=== PATIENT | female | born 1950 | race African-American/Black ===

== ENCOUNTER 2020-08-12 19:49 | Inpatient (IN) | payer OTHER ==
[~2020-08-12] VITALS: Ht 170.2 cm; Wt 78.5 kg
[2020-08-12] MEDS ORDERED: ASA81BEC PO (20:09)
[2020-08-12] MEDS ORDERED: LOVENOX40 MG/0.4 SUBQ (20:10)
[2020-08-12] MEDS ORDERED: LIPITOR40 MG PO (20:10)
[2020-08-12] MEDS ORDERED: HALOPERIDOL5 MG/1 M1 SUBQ (20:12)
[2020-08-12] MEDS ORDERED: TYLENOL EXTRA500 MG PO (20:13)
[2020-08-12] MEDS ORDERED: BISACODYL10 MG RECTAL (20:13)
[2020-08-12] MEDS ORDERED: CLONIDINE HCL0.1 MG PO (20:15)
[2020-08-12] MEDS ORDERED: DIPHENHYDRAMINE25 M3 PO (20:17)
[2020-08-12] MEDS ORDERED: DULCOLAX STOOL100 M1 PO (20:17)
--- NOTE | 2020-08-13 05:26 | NUR ---
ARRIVED ON [facility] 5S FLOOR @ 19:45 AND TRANSFERRED TO BED 521A. 96 HOUR HOLD COMPLETED AND FAXED TO [facility]. ADMISSION ORDERES ENTERED, MEDICATIONS ENTERED. PSYCH DX: PSYCHOSIS NOS. STROKE, DEMENTIA AND ALTERED MENTAL STATUS THE REASONS FOR PATIENT ADMISSION. COMES TO US FROM [facility]. HIGH FALL RISK. EXPERIENCES VISUAL HALLUCINATIONS, HAS DEMENTIA AND DELUSUIONS THAT HER IS A CARPENTER LABOR SUPERVISOR ON TV. BELIEVES WINS MONEY AND PRIZES ON [employer] TV SHOW. CALLS HER BANK DEMANDING T KNOW WHERE THE MONEY IS THAT [employer] DEPOSITED IN HER ACCOUNT. HAS ALSO LEFT HER HOME IN THE NIGHT IN WINTER LIGHTLY DRESSED IN SANDLES AND SAT ON THE CURB OF A BUSY STREET. CONSULTS FOR OT, PT, COREMAKER HELPER AND HOSPITALIST. REGULAR DIET LEFT SIDE OF FACE HAS PALSEY. LEFT LEG WEAK AND LEFT ARM IN A SLING WITH TORREY PARESIS. HTN NOTED.
--- NOTE | 2020-08-13 05:45 | NUR ---
08/13/20 20:00 [id number] 96 18 98.5 97% HEART RATE AND RHYTHM REGULAR, LUNGS CTA BILAT, ABD N X 4Q. LEFT ARM ( IN SOFT SLING) AND LEFT LOWER EXTREMITY HEMIPARESIS NOTED. LEFT SIDE OF FACE HAS PALSEY NOTED. REGULAR DIET. ALERT AND ORIENTED X2 TO PERSON AND ONLY. SKIN IS INTACT. PEDAL PULSES PRESENT BILAT. BED IN LOW POSITION, BED ALARM SET, 3 RAILS UP, WILL CONTINUE TO MONITOR FOR SAFETY AND COMFORT PER [facility] PROTOCOL.
[2020-08-13 06:26] LABS: CHOLESTEROL 188 mg/dL (<200); HDL CHOLESTEROL 50 mg/dL (>40); LDL CHOLESTEROL 115 mg/dL (<100); TC:HDL 3.8 Ratio (Not establshd); TRIGLYCERIDE 118 mg/dL (<150); VLDL 24 mg/dL (<40)
[2020-08-13 06:30] LABS: SERUM ASSESSMENT Clear
[2020-08-13 10:23] VITALS: BP 166/67
--- NOTE | 2020-08-13 16:14 | NUR ---
JOCELYNE spoke with pt who could tell SW the day and other relevant information. She said she went into the hospital July 05 for a stroke. When SW spoke with her again, she said that her is Receptionist Telephone Operator [place] on television. She said she has been to him a year, and met him at faith. JOCELYNE and Dr. Jean spoke with pt's daughter Loreto who gave much background info. She said actually pt went to the hospital August 05 and she was fully functioning before the stroke. She had no physical issues at all. She said her pt has always to her knowledge had delusions. She said when pt was with Loreto's sister, pt was admitted to a psych hospital. However, she will not share with Loreto or her sister if she has a dx. She said that she and her sister are now pursuing guardianship of pt. She said she has an appt with her transactional attorney today to get to him documents. She gave JOCELYNE the email address of [email or web address]. JOCELYNE emailed to Loreto a [facility] welcome from JOCELYNE. JOCELYNE team will continue to follow pt during her stay on this unit.
[2020-08-13 19:14] VITALS: BP 179/97
[2020-08-14 00:06] LABS: GLYCOHEMOGLOBIN (HGB A1C) 7.7 % (4.8-5.6)
--- NOTE | 2020-08-14 00:45 | NUR ---
ASSUMED PT'S CARE BEGINNING OF THIS PM SHIFT. PT ALERT AND ORIENTED. DID INITIALLY REFUSE MEDS. VOICING THAT SHE WAS "FASTING". WAS IRRITABLE AND FUSSY AT THAT TIME. DENIED SI/HI. LATER REQUESTED TO TAKE MEDS. PT CURRENTLY IN BED, SLEEPING. FALL PRECAUTIONS IN PLACE. NURSING TO CONTINUE TO MONITOR.
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
[2020-08-14 09:32] VITALS: BP 155/83
--- NOTE | 2020-08-14 14:29 | NUR ---
Assumed pt care at 0700. pt was in her room awake. Alert and oriented x4. Assessments completed, vss. Denies si/hi. No c/o pain at this time. calm and coopeartive with care. pt took meds whole, no difficulty noted. AMbulates with a w/c. socialized with other pt. WORKED WITH OCCUPATIONAL THERAPIST. No sign sign of acute distress noted upon assessments. At this time pt is in her room relaxing. will continue to monitor pt.
--- NOTE | 2020-08-14 15:18 | NUR ---
OT SPOKE WITH PT. AND ASSESSED SKIN AFTER LEUKOTAPE ON SKIN APPROX 3 HOURS. PT. REPORTS CONTINUING TO FEEL TAPING IS SUPPORTING ARM, SHE STATES EVEN BETTER THAN THE SLING SHE HAD ON PRIOR. PT. SKIN APPEARS INTACT, NO NOTICIBLE IRRITATION. SPOKE WITH NURSING, OT WILL CHECK SKIN TOMORROW AGAIN. IF PROBLEMS WITH TAPING OCCUR ON TUESDAY OR TUESDAY, REMOVE TAPE AND REAPPLY PT. SLING (IN PT. LOCKER ON UNIT) PT. NEEDS SUPPORT FOR L UE AT ALL TIMES. OT WILL ALSO CHECK BACK IN ON TUESDAY AND RE-TAPE TAPING WILL NEED TO BE DONE BI-WEEKLY.
[2020-08-14 19:03] VITALS: BP 161/96
[2020-08-14 22:00] VITALS: BP 161/96
--- NOTE | 2020-08-15 05:13 | NUR ---
PATIENTS CARE WAS RESUMMED AT 1900. LUNGS ARE CLEAR BS ACTIVE X4 QUADS. SHE DENIES PAINS/SI/AVH/HI AND ANY DISCOMFORT. SHE TOOK HER MEDS WHOLE. SHE IS A MAX ASSIST WITH CARE AND INCONTINET OF BOWEL AND BLADDER. SHE IS PLEASANT AND NO BEHAVIOUR NOTED THIS SHIFT.SHE IS A FALL RISK, YELLOW SOCKAND SHIRT ON, BED IS LOW AND LOCKED. Q 12 MINS CHECK ONGOING. SHE AMBBULATED WITH WHEELCHAIR. CONTINUE CARE AND MONITOR.
[2020-08-15 09:28] VITALS: BP 157/98
--- NOTE | 2020-08-15 09:32 | NUR ---
JOCELYNE spoke with Loreto [phone] and told her it was okay to bring magazines and crossword puzzles for pt per [facility] director. SW team will continue to follow pt during her stay on this unit.
--- NOTE | 2020-08-15 09:40 | NUR ---
SITTING QUIETLY IN DAYROOM WITH PEERS THIS AM. NO NOTED SPONTANEOUS SMILING,CONVERSATIONS ETC NOTED OR REPORTED. DENIES SI/SHY/HI. GUARDED. WILL RESPOND TO YES/NO QUESTIONS AND OFFERS NO FURTHER EXPLANATIOINS.
[2020-08-15 20:18] VITALS: BP 158/108
[2020-08-15 21:00] VITALS: BP 158/108
--- NOTE | 2020-08-16 03:40 | NUR ---
PATIENT CARE WAS RESUMED AT 1900. SHE IS ALERT AND ORIENTED. MAX ASSIST WITH CARE. SHE DENIES PAINS, SI/ AVH/ HI. TOOK HER MEDS WHOLE, HE IS RESTING IN BED. ALARM IS ON, BED IS LOW AND LOCK. LUNGS ARE CLEAR BS ACTIVE X 4 QUADS. SHE AMBULATES WITH MIKIE -CHAIR. CONTINUE CARE.
[2020-08-16 09:07] VITALS: BP 167/121
--- NOTE | 2020-08-16 12:11 | NUR ---
HAS BEEN NOTABLY MORE VERBAL TODAY SPEAKS TO STAFF AT LENGTH DURING 1;1 THIS AM ABOUT HER LOVE OF THE OCEAN AND SCUBA DIVING. ATE WELL FOR BREAKFAST BUT REFUSES LUNCH STATING SHE PREFERS TO "HYDRATE" THIS PM "I FEEL BETTER WHEN I DRINK WATER" ASSISTED TO/FROM BED/COMMODE WITH 2 STAFF HAS SIGNIFICANT LEFT SIDED HEMEPERESIS
[2020-08-16 15:23] VITALS: BP 140/84
[2020-08-16 19:38] VITALS: BP 159/82
--- NOTE | 2020-08-16 23:44 | NUR ---
ASSUMED PATIENT CARE AT 1900. PATIENT LYING IN BED AWAKE, NO S/S OF DISTRESS OR DISCOMFORT. A&OX3, DENIES SI, HI, DEPRESSION, PAIN, AVH. NO DELUSIONS OBSERVED. TOOK MEDS WHOLE WITH SOME DIFFICULTY, NEEDED SEVERAL GLASSES OF WATER TO GET THEM DOWN - THOUGH DECLINED THEM TO BE CRUSHED OR TO HAVE THEM WITH PUDDING/APPLESAUCE. PATIENT STATED "AM I GONNA HAVE TO TAKE THESE WHEN I LEAVE? I NEVER TAKE MEDICINES AT HOME, AND I DON'T WANT TO START NOW". WILL CONTINUE TO MONITOR.
[2020-08-17 09:32] VITALS: BP 155/90
--- NOTE | 2020-08-17 13:18 | NUR ---
Assumed pt care at 0700. pt was sitting in the day room. pt was alert and oriented x4. Assessments completed , vss. Denies si/hi, denies pain. pt refused taking her meds, pt stated she never took med at home. pt stated her sister takes meds and it make her sister sleepy, and that is her reason for refusing meds.After redirecting pt, pt took her meds threw it into water CUP, allowed it to dissolve before taking it. Ambulates with a Shelly chair. No sign of acute distress noted upon assessments.pt did not eat much of her breakfast. pt ate most of her lunch. At this time pt is in the day room. will continUe to monitor pt.
[2020-08-17 19:17] VITALS: BP 137/81
--- NOTE | 2020-08-17 23:59 | NUR ---
PATIENT CARE ASSUMED AT 1900. PATIENT IN DAY AREA IN [facility] AT BEGINNING OF THIS TOUR. PATIENT A&OX4, WHEN ASKED HOW SHE WANTED TO TAKE HER MEDS, PATIENT STATED "I JUST NEED TO SEE THE SIZE OF THEM FIRST". GAVE PATIENT MEDICATIONS AND SHE TOOK THEM WHOLE WITHOUT DIFFICULTY WITH 2 CUPS OF WATER. REQUIRES 1-2 ASSIST WITH TRANSFER/TOILETING. WHEN THIS CEMENTING MACHINE OPERATOR ASKED IF I COULD HELP REPOSITION HER IN BED, SHE STATED "I HAVE TO LEARN TO DO THIS MYSELF". PATIENT WAS ABLE TO REPOSITION HERSELF COMFORTABLY. PATIENT PLEASANT AND COOPERATIVE THIS EVENING. WILL CONTINUE TO MONITOR.
[2020-08-18 10:07] VITALS: BP 142/87
--- NOTE | 2020-08-18 12:21 | EKG ---
[address] [address] ELECTROCARDIOGRAM REPORT Name: JAVIER MAURICIO Room #: 52-A ADM IN M.R.#: [id number] Admission: 08/12/20 Attend Phys: Maury Jean DO Discharge: Date of : 50 Report #: [id number] [facility] Test Date: 2020-08-18 Test Time: 11:22:07 Pat Name: JAVIER MAURICIO Department: Room: 52 A Gender: F Manager Scientific: KIKE : 1950 Requested By: Maury Jean Order Number: [id number] MD: Jon Desir Measurements Intervals [place] Rate: 148 P: 183 NH: 68 QRS: 35 QRSD: 108 T: 25 QT: 360 QTc: 566 Interpretive Statements Sinus or ectopic atrial tachycardia Probable left ventricular hypertrophy Prolonged QT interval Baseline wander in lead(s) I No previous ECG available for comparison Electronically Signed On 08-18-2020 12:21:41 CDT by Jon Desir [email or web address] <ELECTRONICALLY SIGNED> By: Jon Desir MD, [facility] 08/18/20 1221 21 21 Jon Desir MD, [facility] /EPI
--- NOTE | 2020-08-18 14:09 | NUR ---
JOCELYNE, Dr. Jean & Dr. Cueva met with pt and her dtrs, Loreto and Maddison for a family meeting to discuss patient's needs at this time. Pt and her family were informed that patient needs 24 hr supervision at this time due to the injury she sustained secondary to having recently had a stroke. She also had an irregular EKG this morning. When pt found out she was not being discharged today as she had planned, she became angry and started yelling. Family's questions were answered and the plan is to follow up tomorrow with updates. SW team will remain available while on this unit.
--- NOTE | 2020-08-18 17:04 | NUR ---
pleasant and cooperative initially this am-oriented to person,place-unsure of date but knew the month. ATE 100 PERCENT OF BREAKFAST AND TOOK AM MEDICATIONS TRANSFERING WITH 1 PERSON ONLY AND DEMONSTRATING TO THIS MEDICAL ACCOUNTANT IMPROVEMENT SHE HAD MADE IN MOVEMENT OVER WEEKEND. AT APPROX 1130 HAD FAMILY MEETING AND SINCE THAT TIME HAS BEEN [id number] "THEY TOLD ME I CAN'T GO HOME I HAVE TO STAY HERE AND THAT I CAN'T TAKE CARE OF MYSELF" REFUSED LUNCH AND DID NOT PARTICIPATE IN PM ACTIVITIES. WHEELED SELF TO ROOM AND PUT SELF IN BED AT APPROX 1645-REFUSED SUPPER-MINIMALLY VERBAL WITH STAFF WHEN ATTEMPTED TO SPEAK WITH HER STATING "I DON'T WANT TO TALK TO ANY OF YOU" DID WORK WITH PT DURING SCHEDULED TIME.
[2020-08-18 19:15] VITALS: BP 153/105
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
--- NOTE | 2020-08-18 20:26 | NUR ---
RYAN PHAM NOTIFIED OF PTS REFUSAL OF CARDIZEM.
--- NOTE | 2020-08-19 00:54 | NUR ---
PATIENT CARE RESUMED AT 1900. PATIENT A&OX4, NO S/S OF DISTRESS DISCOMFORT. TOOK MEDS WITHOUT DIFFICULTY. STATES SHE IS GETTING SOME FEELING BACK IN HER LEFT ARM. PATIENT IS CONSIENTIOUS ABOUT POSITIONING AND KEEPING HER LEFT ARM SAFE AND KEEPING HER FINGERS FROM BENDING THE WRONG WAY. SHE STATES SHE LEARNED THIS IN PHYSICAL THERAPY. WILL CONTINUE TO MONITOR.
[2020-08-19 10:19] VITALS: BP 153/105
--- NOTE | 2020-08-19 10:57 | NUR ---
RT PROGRESS NOTE- Rosalinda has been present in the milieu for much of each day since her admission. She is present in recreation therapy groups but her participation varies dependent upon her mood which remains labile. Rosalinda continues to present with delusions regarding particular patients as actors from movies on TV and previous presidents casting various rules regarding how much she can eat, what the thermostat should be set at, or when a mother can work following the of a child. She is goal oriented and focused on the improvement of her deficits that resulted from her stroke. ARTIFICIAL CHERRY MAKER will encourage continued participation.
--- NOTE | 2020-08-19 13:45 | NUR ---
Assumed pt care at 0700. PT WAS IN HER ROOM RESTING. Assessments completed,vss. Took meds whole, no difficulty NOTED. Pt denies si/hi, denies pain. ambulates with w/c. No sign of acute distress noted upon assessments. pt was calm and cooperative with care. Make needs known to staff. no BM noted AT THIS TIME. AT THIS TIME PT IS IN GROUPS. WILL CONTINUE TO MONITOR.
[2020-08-19 19:58] VITALS: BP 139/107
--- NOTE | 2020-08-20 05:45 | NUR ---
08-19-20 CARE TRANSFERRED 1899. LATER PT AAOX3, VSS, RR EVEN AND NONLABORED ON RA, PT DENIES PAIN AND SI/HI. DURING MEDICATION ADMIN PT HAD NO DIFFICULTIES TAKING MEDICATION ON IN WATER. ZERO S/S OF ACUTE DISTRESS NOTED, PT WILL CONTINUE TO BE MONITOR PER [facility].
[2020-08-20 09:31] VITALS: BP 139/80
--- NOTE | 2020-08-20 18:27 | NUR ---
HAS BEEN QUIET AND COOPERATIVE TODAY-SITS QUIETLY IN DAYROOM DURING UNSTRUCTURED TIME-SOME SOCIALIZATION WITH FEMALE PEERS -SAD FACIAL EXPRESSION-CONSTRICTED AFFECT. DENIES SI/SH. NO NOTED OR REPORTED PSYCHOSIS-DELUSIONAL THOUGHTS OR A/V HALLUCINATIONS. WORKS WELL WITH PT AND DOES SHOW SOME SPONTANEOUS EXPRESSION ABOUT PROGRESS SHE HAS MADE WITH MOVEMENT AND AMBULATION. ALERT AND ORIENTED X 2. CONTINUES ON FALL PRECAUTIONS
[2020-08-20 19:47] VITALS: BP 148/87
--- NOTE | 2020-08-20 23:20 | NUR ---
08-20-20 CARE TRANSFERRED 1899. LATER PT AAOX4, VSS, RR EVEN AND NONLABORED ON RA, PT DENIES SI/HI AND PAIN. PT CALM BUT IS FRUSTRATED AND READY TO GO HOME. PT BED WAS ADJUSTED FOR PT COMFORT AND BED LOWEST POSITION AND ALARM SET. DURING MEDICATION PT HAD NO DIFFICULTIES. ZERO S/S OF ACUTE DISTRESS NOTED, PT WILL CONTINUE TO BE MONITOR PER [facility] PROTOCOL.
--- NOTE | 2020-08-21 09:35 | NUR ---
JOCELYNE received a vm stating that her batch freezer needs to know where pt will be placed so that they can file with the court and get a court date. SW explained that she simply needs to tell them what county she wants [place] at; her home ([place]) vs her sisters home ([place]) so that she can get a court date. JOCELYNE explained that all she needs to do is decide which county they want her in, and then tell her oracle engineer. They will serve pt in the hospital no matter what. She said ok, and that she will place in [place]. SW team will continue to follow pt during her stay on this unit.
[2020-08-21 11:35] VITALS: BP 102/72
--- NOTE | 2020-08-21 15:20 | NUR ---
Alert and orientated X4. Flat, depressed affect, irritable at times. Denies SI/HI. Stated she was nauseated after lunch and didn't feel well, refused zofran. Was initially requesting sprite but then declined when told she couldn't have it in her room. Laid down without diff and rested for about an hour. Breath sounds clear. Reg HR auscultated. Color pale pink with brisk capillary refill and palpable peripheral pulses. Brief dry. Active bowel sounds over soft, rounded abdomen. Can't remember last BM, refusing laxative. Last documented BM 08/19
[2020-08-21 19:50] VITALS: BP 87/50
[2020-08-21 20:40] VITALS: BP 96/56
--- NOTE | 2020-08-22 04:25 | NUR ---
08-21-20 CARE TRANSFERRED 1914 OBSERVED PT SITTING IN W/CHAIR IN DAY ROOM. LATER PT RESTING IN BED WITH EYES CLOSED, EASILY AROUSED TO VOICE, PT REPOSITION SELF TO SITTING POSITION, PT AAOX4, MANUAL B/P 96/56, APICAL PULSE 72, PT SKIN W/D AND PT DENIES PAIN AND SI/HI. PT HAD NO DIFFICULTIES TAKING MEDICATION FLOATED WHOLE IN WATER, THIS IS PT PREFERRENCE. PT BED WAS ADJUSTED FOR COMFORT, LOWEST POSITION WITH ALARM ON. ZERO S/S OF ACUTE DISTRESS NOTED, PT WILL CONTINUE TO BE MONITOR PER [facility] PROTOCOL.
[2020-08-22 10:19] VITALS: BP 119/69
--- NOTE | 2020-08-22 10:44 | NUR ---
Alert and orientated X4. Denies SI/HI. Calm and cooperative, states she feels better than yesterday. Irritable at times, questioning each med but compliant. Breath sounds clear. Reg HR auscultated. Color pink with brisk capillary refill and palpable peripheral pulses. Denies need to void. Active bowel sounds over soft, rounded abdomen. Pushing self in WC without s/o distress.
[2020-08-22 19:54] VITALS: BP 111/65
--- NOTE | 2020-08-23 05:41 | NUR ---
Assumed pt's care beginning of pm shift. Alert and oriented. Pt was in her bed at time of assessment. Pt was cooperative with care this shift. Took meds whole per emar. Tachycardia. Pt slept well this shift. Edema remains to BLE and feet. Left more edematous than right. New lab orders and pharmacy consult. Nursing to continue to monitor.
[2020-08-23 06:05] LABS: ABSOLUTE NEUTROPHILS 10.5 thou/uL (1.4-8.2); BASOPHILS 0.2 % (0.0-2.0); EOSINOPHILS 0.3 % (0.0-3.0); HEMATOCRIT 25.5 % (37.0-47.0); HEMOGLOBIN 8.3 gm/dL (12.0-15.0); LYMPHOCYTES 11.6 % (24.0-44.0); MCH 28.7 pg (26.0-34.0); MCHC 32.5 g/dL (28.0-37.0); MCV 88.3 fL (80.0-100.0); MONOCYTES 17.2 % (1.0-8.0); PLATELET COUNT 77 thou/uL (150-400); POLYS 70.7 % (36.0-66.0); RBC 2.89 mil/uL (4.20-5.00); WBC 14.8 thou/uL (4.0-11.0)
[2020-08-23 06:28] LABS: ALBUMIN 2.3 g/dL (3.4-5.0); CALCIUM 8.6 mg/dL (8.5-10.1); CREATININE 1.1 mg/dL (0.6-1.0); MAGNESIUM 2.3 mg/dL (1.8-2.4); PHOSPHORUS 3.1 mg/dL (2.6-4.7); POTASSIUM 3.9 mmol/L (3.5-5.1); TOTAL BILIRUBIN 0.9 mg/dL (0.2-1.0); TOTAL PROTEIN 6.8 g/dL (6.4-8.2)
[2020-08-23 08:25] VITALS: BP 133/77
--- NOTE | 2020-08-23 10:02 | NUR ---
Alert and orientated x 4. Slightly irritable this AM, questioning every med stating that she doesn't need them. States she shouldn't take meds from "overseas" and expressing concerns about meds from [place]. Was compliant with scheduled meds but adamantly refused milk of mag. Denies SI/HI. Breath sounds clear, bilaterally equal. Reg HR 100s auscultated. Color pink with brisk capillary refill and palpable peripheral pulses. Edema in lower extremities about the same from yesterday, L>R with slight erythema on anterior aspect of R foot, no streaking noted. Brief dry. Active bowel sounds over soft, rounded abd. No documented BM since 08/19, pt states from prior to admission. Pt. refusing milk of mag stating she doesn't need it and that "you can't make me take it". Transfers from bed to with minimal assistance. Dr. Astudillo notified of abnormal labs, redrawing labs per order. Currently having doppler done on lower extremities per order. Pt. without s/o distress.
[2020-08-23 10:15] LABS: % SATURATION 13 % (20-39); IRON 22 ug/dL (50-170); TIBC 166 ug/dL (250-450)
[2020-08-23 10:49] LABS: FOLIC ACID 6.4 ng/mL (8.6-58.9)
[2020-08-23 11:02] LABS: HEMATOCRIT 25.5 % (37.0-47.0); HEMOGLOBIN 8.2 gm/dL (12.0-15.0); MCH 28.3 pg (26.0-34.0); MCHC 32.2 g/dL (28.0-37.0); MCV 88.1 fL (80.0-100.0); RBC 2.9 mil/uL (4.20-5.00); RDW 13.8 % (10.5-14.5); WBC 16.7 thou/uL (4.0-11.0)
[2020-08-23] MEDS ORDERED: EXTRA STRENGTH85 GM TOP (11:14)
[2020-08-23] MEDS ORDERED: MILK OF MA2400 MG/11 TOP ×2 (11:14)
[2020-08-23] MEDS ORDERED: CEPACOL SORE T1 EAC7 PO (11:14)
[2020-08-23] MEDS ORDERED: ONDANSETRON HCL4 M2 PO (11:14)
[2020-08-23] MEDS ORDERED: PROTONIX 20 MG20 M1 PO (11:14)
[2020-08-23] MEDS ORDERED: ADULT LOW DOSE81 MG PO (11:14)
[2020-08-23] MEDS ORDERED: ATORVASTATIN CA10 MG PO (11:14)
[2020-08-23] MEDS ORDERED: MELATONIN5 M1 PO (11:14)
[2020-08-23] MEDS ORDERED: BISACODYL10 MG RECTAL (11:14)
[2020-08-23] MEDS ORDERED: MAG-AL PLUS SUS30 ML PO (11:14)
[2020-08-23] MEDS ORDERED: MILK OF MA2400 MG/11 PO (11:14)
[2020-08-23] MEDS ORDERED: DILTIAZEM 24HR180 M1 PO (11:14)
[2020-08-23] MEDS ORDERED: ACETAMINOPHEN325 M1 PO (11:14)
[2020-08-23] MEDS ORDERED: COLACE 100 MG100 MG PO (11:14)
[2020-08-23] MEDS ORDERED: NITROGLYCERIN0.4 MG SUBLING (11:14)
[2020-08-23] MEDS ORDERED: ZYPREXA 5 MG TAB5 M1 PO (11:14)
== END 2020-08-23 11:29 | disposition short-term general hospital (02) | DRG 885 ==
LOC: SBH 19:49
PROVIDERS: Internal Medicine; Nurse Practitioner Family; ADMIT Psychiatry & Neurology Psychiatry; ATTEND Psychiatry & Neurology Psychiatry
DX: F29 Unspecified psychosis not due to a substance or known physiological condition (principal); I82.403 Acute embolism and thrombosis of unspecified deep veins of lower extremity, bilateral; I69.354 Hemiplegia and hemiparesis following cerebral infarction affecting left non-dominant side; E44.0 Moderate protein-calorie malnutrition; D72.829 Elevated white blood cell count, unspecified; I10 Essential (primary) hypertension; E78.5 Hyperlipidemia, unspecified; D69.6 Thrombocytopenia, unspecified; E11.9 Type 2 diabetes mellitus without complications; I25.2 Old myocardial infarction; Z91.14 Patient's other noncompliance with medication regimen; Z68.27 Body mass index [BMI] 27.0-27.9, adult
CPT/HCPCS: 10880

== ENCOUNTER 2020-08-23 11:01 | Inpatient (IN) | payer OTHER ==
[~2020-08-23] VITALS: Ht 170.1 cm; Wt 98.1 kg
[~2020-08-23 11:01] MED LIST: ASA81BEC PO; BISACODYL10 MG RECTAL; CLONIDINE HCL0.1 MG PO; DIPHENHYDRAMINE25 M3 PO; DULCOLAX STOOL100 M1 PO; HALOPERIDOL5 MG/1 M1 SUBQ; LIPITOR40 MG PO; LOVENOX40 MG/0.4 SUBQ; TYLENOL EXTRA500 MG PO
[2020-08-23] MEDS ORDERED: MILK OF MA2400 MG/11 PO (11:14)
[2020-08-23] MEDS ORDERED: DILTIAZEM 24HR180 M1 PO (11:14)
[2020-08-23] MEDS ORDERED: ZYPREXA 5 MG TAB5 M1 PO (11:14)
[2020-08-23] MEDS ORDERED: NITROGLYCERIN0.4 MG SUBLING (11:14)
[2020-08-23] MEDS ORDERED: COLACE 100 MG100 MG PO (11:14)
[2020-08-23] MEDS ORDERED: MAG-AL PLUS SUS30 ML PO (11:14)
[2020-08-23] MEDS ORDERED: PROTONIX 20 MG20 M1 PO (11:14)
[2020-08-23] MEDS ORDERED: EXTRA STRENGTH85 GM TOP (11:14)
[2020-08-23] MEDS ORDERED: ADULT LOW DOSE81 MG PO (11:14)
[2020-08-23] MEDS ORDERED: MILK OF MA2400 MG/11 TOP ×2 (11:14)
[2020-08-23] MEDS ORDERED: ONDANSETRON HCL4 M2 PO (11:14)
[2020-08-23] MEDS ORDERED: MELATONIN5 M1 PO (11:14)
[2020-08-23] MEDS ORDERED: ATORVASTATIN CA10 MG PO (11:14)
[2020-08-23] MEDS ORDERED: CEPACOL SORE T1 EAC7 PO (11:14)
[2020-08-23] MEDS ORDERED: ACETAMINOPHEN325 M1 PO (11:14)
[2020-08-23] MEDS ORDERED: BISACODYL10 MG RECTAL (11:14)
[2020-08-23 12:30] VITALS: BP 138/75
[2020-08-23 12:37] LABS: HEMATOCRIT 27.3 % (37.0-47.0); HEMOGLOBIN 8.8 gm/dL (12.0-15.0); MCH 28.5 pg (26.0-34.0); MCHC 32.1 g/dL (28.0-37.0); MCV 88.8 fL (80.0-100.0); RBC 3.07 mil/uL (4.20-5.00); RDW 14.3 % (10.5-14.5); WBC 17.6 thou/uL (4.0-11.0)
[2020-08-23 12:40] VITALS: BP 138/75
[2020-08-23 12:45] LABS: CALCIUM 9.4 mg/dL (8.5-10.1); CREATININE 1.1 mg/dL (0.6-1.0); POTASSIUM 3.6 mmol/L (3.5-5.1)
[2020-08-23 12:51] LABS: ALBUMIN 2.7 g/dL (3.4-5.0); TOTAL BILIRUBIN 1.1 mg/dL (0.2-1.0); TOTAL PROTEIN 7.9 g/dL (6.4-8.2)
[2020-08-23 12:52] LABS: APTT 32.4 Seconds (24.5-32.8); INR 1.4
[2020-08-23 13:50] LABS: FOLIC ACID 6.7 ng/mL (8.6-58.9)
[2020-08-23 16:00] VITALS: BP 138/77
[2020-08-23 16:58] VITALS: BP 138/77
--- NOTE | 2020-08-23 18:36 | NUR ---
PT CARE ASSUMED AT 1230. ASSESSMENTS CHARTED. MEDICATIONS CHARTED. RAC IV. LH IV. SINUS TACHYCARDIA. DIET: NPO. CT CHEST/ABDOMEN COMPLETE. LT HEMIPARESIS. ASSIST X 2 WITH GAIT BELT. BILATERAL DVT FROM POPLITEAL DOWN. PHYSICAL THERAPY REQUESTS THE TAPE ON LEFT SHOULDER REMAIN. PT TRANSFERRED FROM [facility], WILL OFTEN REFUSE MEDICATION OR TREATMENTS. PT IS AOX 3-4, BUT SUFFERS FROM DELUSIONS AND HALLUCINATIONS. HEPARIN GTT.
[2020-08-23 19:05] VITALS: BP 117/51
[2020-08-23 20:32] LABS: HEMATOCRIT 23.6 % (37.0-47.0); HEMOGLOBIN 7.5 gm/dL (12.0-15.0)
[2020-08-24] VITALS (11 sets, daily range): BP systolic 98–158; BP diastolic 53–75
--- NOTE | 2020-08-24 05:39 | NUR ---
PT SLEEPING ON AND OFF THRU THE NOC, HALLUCINATING PEOPLE COMING INTO HER ROOM AND TAKING HER ID BANDS OFF, HEPARIN AND FLUIDS INFUSING, I UPRBC'S STARTED IN NEW IV SITE IN L FA, R AC SITE DC'D AFTER INFILTRATED. NO C/O PAIN, VSS, WILL CON'T TO MONITOR PER PPOC.
[2020-08-24 06:56] LABS: CALCIUM 8.4 mg/dL (8.5-10.1); CREATININE 0.9 mg/dL (0.6-1.0); POTASSIUM 3.6 mmol/L (3.5-5.1)
[2020-08-24 10:17] LABS: CHOLESTEROL 112 mg/dL (<200); HDL CHOLESTEROL 33 mg/dL (>40); LDL CHOLESTEROL 58 mg/dL (<100); TC:HDL 3.4 Ratio (Not establshd); TRIGLYCERIDE 106 mg/dL (<150); VLDL 21 mg/dL (<40)
--- NOTE | 2020-08-24 17:50 | NUR ---
PT CARE ASSUMED AT 0700. ASSESSMENTS CHARTED. MEDICATIONS CHARTED. LH IV. RFA IV. SINUS TACHYCARDIA. BSC, HEPARIN DRIP. LT HEMIPARESIS. DIET CLEAR LIQUIDS. WILL REFUSE TREATMENT ON OCCASSION. LAB IS HAVING DIFFICULTY DRAWING BLOOD.
[2020-08-24 20:16] LABS: HEMATOCRIT 22.1 % (37.0-47.0); HEMOGLOBIN 7.1 gm/dL (12.0-15.0); MCH 28.7 pg (26.0-34.0); MCHC 32.1 g/dL (28.0-37.0); MCV 89.5 fL (80.0-100.0); RBC 2.47 mil/uL (4.20-5.00); RDW 14.7 % (10.5-14.5); WBC 16.9 thou/uL (4.0-11.0)
[2020-08-25 04:00] VITALS: BP 118/54
[2020-08-25 07:06] VITALS: BP 133/67
--- NOTE | 2020-08-25 07:10 | EKG ---
[address] [address] ELECTROCARDIOGRAM REPORT Name: MAURICIOJAVIER Room #: 218-P ADM IN M.R.#: [id number] Admission: 08/23/20 Attend Phys: Wendy Astudillo MD Discharge: Date of : 50 Report #: [id number] [facility] Test Date: 2020-08-23 Test Time: 12:13:30 Pat Name: JAVIER MAURICIO Department: Room: 218 P Gender: F Respiratory Care Instructor: TARIK : 1950 Requested By: Wendy Astudillo Order Number: [id number] MD: Jon Desir Measurements Intervals [place] Rate: 116 P: 263 MI: 124 QRS: 38 QRSD: 110 T: 73 QT: 336 QTc: 467 Interpretive Statements Ectopic atrial tachycardia, unifocal Left atrial enlargement Abnormal R-wave progression, early transition LVH with IVCD and secondary repol abnrm Compared to ECG 08/18/2020 11:22:07 Atrial abnormality now present Intraventricular conduction delay now present Early repolarization now present Prolonged QT interval no longer present Electronically Signed On 08-25-2020 7:10:48 CDT by Jon Desir [email or web address] <ELECTRONICALLY SIGNED> By: Jon Desir MD, FAC 08/25/20 0710 1213 1213 Jon Desir MD, FAC /EPI
[2020-08-25 08:28] LABS: HEMATOCRIT 22.9 % (37.0-47.0); HEMOGLOBIN 7.1 gm/dL (12.0-15.0); MCH 28.2 pg (26.0-34.0); MCHC 31.1 g/dL (28.0-37.0); MCV 90.7 fL (80.0-100.0); PLATELET COUNT 139 thou/uL (150-400); RBC 2.52 mil/uL (4.20-5.00); RDW 15.1 % (10.5-14.5); WBC 17.7 thou/uL (4.0-11.0)
[2020-08-25 09:38] LABS: ABSOLUTE NEUTROPHILS 12.4 thou/uL (1.4-8.2); METAMYELOCYTES 1 %
[2020-08-25 09:39] LABS: ANISOCYTOSIS 1+
--- NOTE | 2020-08-25 09:42 | NUR ---
ASSUMED PT CARE AT 0700, PT IN BED. 0830 ASSESSMENT PERFORMED CHARTED. PT VOICES NO CONCERNS AT THIS TIME. APTT DRAWN AND HEPARIN ADJUSTED PROTOCOL. VSS. WILL CONTINUE TO MONITOR AND FOLLOW POC.
--- NOTE | 2020-08-25 09:51 | NUR ---
VAT CONSULTED FOR MIDLINE. PT HAS NON COMPRESSIBLE VESSELS IN SEK[place] AND UNABLE TO USE L ARM DUE TO CINTRACTURE. SPOKE WITH PRIMARY RN PT NEEDS TO GO TO IR FOR LINE PLACEMENT
[2020-08-25 11:30] VITALS: BP 156/83
--- NOTE | 2020-08-25 12:01 | NUR ---
PT IN CHAIR, WORKED WITH PT/OT THIS MORNING. VSS. ASSESSMENT UNCHANGED. WILL CONTINUE TO MONITOR AND FOLLOW POC.
--- NOTE | 2020-08-25 14:45 | 2DMMODE ---
[facility] [place] [address] 2 D/M-MODE ECHOCARDIOGRAM Name: JAVIER MAURICIO Room #: 218-P ADM IN M.R.#: [id number] Admission: 08/23/20 Attend Phys: Wendy Astudillo MD Discharge: Date of : 50 Report #: [id number] THIS REPORT FOR: cc: FAM - No family physician/PCP FAM - No family physician/PCP Shankar Sarah MD ~ APPROVED REPORT Study performed: 08/25/2020 14:02:45 EXAM: Comprehensive 2D, Doppler, and color-flow Echocardiogram Patient Location: Bedside Room #: 218 Status: routine BSA: 1.90 HR: 102 bpm BP: 156/83 mmHg Rhythm: Tachycardia Other Information Study Quality: Adequate Technically limited study due to no patient cooperation. Not all measurements taken. Indications Untreated HTN, short of air, elevated troponin, leg swelling. 2D Dimensions RVDd: 40.37 mm IVSd: 12.56 (7-11mm) LVOT Diam: 20.77 (18-24mm) LVDd: 54.74 mm PWd: 12.68 (7-11mm) LVDs: 39.00 (25-40mm) Aortic Root: 31.17 mm Volumes Left Atrial Volume (Systole) Single Plane 4CH: 119.43 mL Single Plane 2CH: 121.67 mL LA ESV Index: 67.00 mL/m2 Aortic Valve AoV Peak Jake.: 1.81 m/s AO Peak Gr.: 13.08 mmHg LVOT Max P.76 mmHg LVOT Max V: 1.09 m/s [facility] [email or web address] [address] 2 D/M-MODE ECHOCARDIOGRAM Name: JAVIER MAURICIO Room #: 218-P [facility] IN ..#: [id number] Admission: 08/23/20 Attend Phys: Wendy Astudillo, Discharge: Date of : 50 Report #: [id number] NOHELIA Vmax: 2.04 cm2 Mitral Valve E/A Ratio: 1.4 MV Decel. Time: 179.52 ms MV E Max Jake.: 1.69 m/s MV A Jake.: 1.17 m/s MV PHT: 52.06 ms Tricuspid Valve TR Peak Jake.: 3.27 m/s RAP Estimate: 10.00 mmHg TR Peak Gr.: 43.00 mmHg PA Pressure: 53.00 mmHg Left Ventricle The left ventricle is normal size. There is normal LV segmental wall motion. Mild concentric left ventricular hypertrophy. Left ventricular systolic function is normal. LVEF is 60%. Moderate diastolic dysfunction is present (pseudonormal filling). Right Ventricle The right ventricle is normal size. The right ventricular systolic function is normal. Atria Left atrium is severely dilated. The right atrium size is normal. Aortic Valve The aortic valve is normal in structure. No aortic regurgitation is present. There is no aortic valvular stenosis. Mitral Valve The mitral valve is normal in structure and function. Severe mitral regurgitation. Tricuspid Valve The tricuspid valve is normal in structure. Mild tricuspid regurgitation. Estimated PAP is 50mmHg. Pulmonic Valve Pulmonic valve is not well visualized. Great Vessels The aortic root is normal in size. IVC is normal in size and collapses <50% with inspiration. [facility] [address] [place] [address] 2 D/M-MODE ECHOCARDIOGRAM Name: OLGA MAURICIOLINE Room #: 218-P ADM IN M.R.#: [id number] Admission: 08/23/20 Attend Phys: Wendy Astudillo, Discharge: Date of : 50 Report #: [id number] Pericardium There is no pericardial effusion. <Conclusion> The left ventricle is normal size. Mild concentric left ventricular hypertrophy. LVEF is 60%. Left atrium is severely dilated. The aortic valve is normal in structure. The mitral valve is normal in structure and function. Severe mitral regurgitation. The tricuspid valve is normal in structure. Mild tricuspid regurgitation. Estimated PAP is 50mmHg. Pulmonic valve is not well visualized. The aortic root is normal in size. There is no pericardial effusion. <ELECTRONICALLY SIGNED> By: Shankar Sarah MD 08/25/20 1445 1445 1445 Shankar Sarah MD /INF
[2020-08-25 14:58] LABS: OBSERVED RETIC COUNT 2.94 % (0.6-2.6)
[2020-08-25 15:20] VITALS: BP 141/64
--- NOTE | 2020-08-25 15:51 | NUR ---
PT RESTING IN BED, ASSESSMENT UNCHANGED. WILL CONTINUE TO MONITOR AND FOLLOW POC.
--- NOTE | 2020-08-25 17:23 | NUR ---
Patient admits to [facility]U from [facility]. Patient admits with DVT, anemia. Patient at [facility] with recent stroke. Patient then transitioned to [facility]. Patient has hallucinations. She believes her reality is from the television. Spoke with bharat Dangelo at bedside. Loreto reports she resides with [facility] and goes from [facility] to [facility]. She lives with both. They are in process of obtaining guardenship. Loreto reports they often questioned mental illness with mother but she never went to a DR. They have been informed with diagnosis and a bit overwhelmed. Patient with GI consult, noted liver mets. Continued medical care and casemgt following to assist with dc planning.
--- NOTE | 2020-08-25 17:34 | NUR ---
SPOKE WITH DR THACKER REGARDING ORDER FOR US BILATERAL ARMS TO R/O DVT. PT HAS NON COMPRESSIBLE VESSELS IN SEKOU.
[2020-08-25 19:46] VITALS: BP 116/61
[2020-08-26] VITALS (7 sets, daily range): BP systolic 106–155; BP diastolic 60–85
[2020-08-26 02:44] LABS: MCHC 32.2 g/dL (28.0-37.0); RDW 15.3 % (10.5-14.5)
[2020-08-26 02:46] LABS: HEMATOCRIT 20.3 % (37.0-47.0); HEMOGLOBIN 6.5 gm/dL (12.0-15.0); MCH 28.8 pg (26.0-34.0); MCV 89.4 fL (80.0-100.0); RBC 2.27 mil/uL (4.20-5.00); WBC 17.8 thou/uL (4.0-11.0)
[2020-08-26 03:06] LABS: CALCIUM 7.7 mg/dL (8.5-10.1); CREATININE 0.7 mg/dL (0.6-1.0); POTASSIUM 3.2 mmol/L (3.5-5.1)
--- NOTE | 2020-08-26 07:44 | NUR ---
PATIENTS CARES WERE ASSUMED AT SHIFT TIME. PATIENT WAS ASSESSED AND MEDS WERE PASSED. PATIENT DID HAVE A RESTFUL NIGHT. PATIENT IS MORE AGREEABLE AT THIS TIME. ROUNDING WAS DONE,BED ALARM IS ON, BED IS IN A LOW AND LOCKED POSITION.
--- NOTE | 2020-08-26 09:03 | NUR ---
VAT SPOKE WITH PRIMARY RN REGARDING US REVALED CLOTS IN BOTH ARMS UNABLE TO PLACE PIV'S, NEED FOR ORDER FOR IR TO PLACE TICC OR CENTRAL LINE WHEN IN IR TODAY FOR BX.
--- NOTE | 2020-08-26 09:47 | NUR ---
ASSUMED PT CARE AT 0700. PT RESTING. ASSESSMENT PERFORMED AT 0900. VSS. WILL CONTINUE TO MONITOR. DR THACKER STATES TO HOLD ANY HEPARIN TITRATIONS BECAUSE IT WILL BE D/C'D WITHIN THE HOUR. DR THACKER STATES THEY ARE UNABLE TO DO THE LIVER BIOPSY DUE TO ASA ADMINISTRATION. SO PATIENT WILL BE D/C SOON AND LIVER BIOPSY WILL BE PERFORMED OUTPATIENT. PT VOICES NO CONCERNS AT THIS TIME. WILL CONTINUE TO MONITOR AND FOLLOW POC.
--- NOTE | 2020-08-26 11:54 | NUR ---
PT ASSESSMENT UNCHANGED. HEPARIN GTT D/C'D. PT TOLERATED PO PILLS. GI PROVIDERS ORDERED 1 UNIT OF PRBCS. 1145, 1UNIT OF PRBCS STARTED. PT TOLERATING TRANSFUSION THIS FAR. PTS VSS. PT VOICES NO CONCERNS AT THIS TIME. VSS. WILL CONTINUE TO MONITOR AND FOLLOW POC.
--- NOTE | 2020-08-26 15:54 | NUR ---
Spoke with dtr Loreto regarding dc planning. Loreto reports she and sister cannot support 24 hour supervision. emailed skilled list to Loreto for review with her sister. Discussed need for ltc as well.
[2020-08-27 03:28] VITALS: BP 124/71
[2020-08-27 05:24] LABS: HEMATOCRIT 24.4 % (37.0-47.0); MCH 29.1 pg (26.0-34.0); MCHC 32.6 g/dL (28.0-37.0); MCV 89.2 fL (80.0-100.0); RBC 2.74 mil/uL (4.20-5.00); RDW 14.9 % (10.5-14.5); WBC 17.8 thou/uL (4.0-11.0)
[2020-08-27 05:39] LABS: CALCIUM 7.9 mg/dL (8.5-10.1); CREATININE 0.9 mg/dL (0.6-1.0); POTASSIUM 3.3 mmol/L (3.5-5.1)
[2020-08-27 08:45] VITALS: BP 137/81
--- NOTE | 2020-08-27 09:34 | NUR ---
ASSUMED PT CARE AT 0800, AT 0900 ASSESSMENT PERFORMED CHARTED. PT VOICES CONCERNS OF NOT WANTING TO DO THE PROCEDURE (COLONOSCOPY). PT STATES SHE WILL WALK OUT OF HERE IF SHE DOES IT. PT ALERT TO SELF AND PLACE AT THIS TIME. PT ASSESSMENT PERFORMED CHARTED. VSS. WILL CONTINUE TO MONITOR AND FOLLOW POC.
[2020-08-27 12:00] VITALS: BP 128/66
--- NOTE | 2020-08-27 12:09 | NUR ---
PT SITTING UP IN THE CHAIR WITH HEAD ON THE BEDSIDE TABLE. PT STATES SHE DOES NOT WANT TO GO BACK TO THE BED. PTS ASSESSMENT UNCHANGED. PT ALERT TO SELF AND PLACE ONLY. VSS. WILL CONTINUE TO MONITOR AND FOLLOW POC.
--- NOTE | 2020-08-27 14:31 | NUR ---
STARTED BOWEL PREP FOR COLONOSCOPY. PT REFUSES TO DRINK ANYTHING AT THIS POINT IN TIME.
--- NOTE | 2020-08-27 15:52 | NUR ---
Loreto (dtr) and Che visited today. They were attempting to assist with patient to drink prep for colonscopy. Patient has been refusing. sp with loreto nicholson she is reviewing skilled list with her sister. Encourage to sp with sister and have facility referrals in place.
[2020-08-27 16:00] VITALS: BP 130/71
--- NOTE | 2020-08-27 16:19 | NUR ---
ASSESSMENT UNCHANGED. VSS. WILL CONTINUE TO MONITOR AND FOLLOW POC.
--- NOTE | 2020-08-27 17:55 | NUR ---
I HAVE OFFERED DRINKS WITH BOWEL PREP POWDER IN THEM, PT REFUSES TO DRINK ANYTHING. PT STATES SHE IS NOT THIRSTY AND BELIEVES SHE IS GOING TO [place] IN A COUPLE DAYS AND STATES "I HAVE TO BE SKINNY TO GO INTO [place]. SO I CANNOT DRINK OR EAT ALOT" RN ATTEMPTED TO REORIENT PATIENT WITH NO SUCCESS. WILL KEEP ATTEMPTING TO GET PATIENT TO DRINK.
[2020-08-27 19:26] VITALS: BP 132/65
[2020-08-28 03:24] LABS: HEMATOCRIT 24.5 % (37.0-47.0); HEMOGLOBIN 8.1 gm/dL (12.0-15.0); MCH 30.4 pg (26.0-34.0); MCV 92.1 fL (80.0-100.0); RBC 2.66 mil/uL (4.20-5.00); RDW 15.5 % (10.5-14.5); WBC 18.9 thou/uL (4.0-11.0)
[2020-08-28 03:55] LABS: CALCIUM 7.5 mg/dL (8.5-10.1); CREATININE 0.9 mg/dL (0.6-1.0); POTASSIUM 3.3 mmol/L (3.5-5.1)
[2020-08-28 08:00] VITALS: BP 140/80
--- NOTE | 2020-08-28 08:35 | NUR ---
PT PREMEDICATED WITH REGLAN 10MG AND SIMETHICONE 80MG. VIDEO CAPSULE INITIATED AT 0745 AFTER CONSENT OBTAINED. PILL INGESTED AND TRANSDUCER WORKING. INSTRUCTIONS FOR NPO X 2 HRS, THEN CL X2 HRS, THEN LIGHT MEAL AND MEDS AFTER 4HRS LEFT WITH PT/NURSE. INSTRUCTED TO CALL IF TRANSDUCER STOPS BLINKING BEFORE 3-4PM. VOICES COMPREHENSION OF ABOVE.
--- NOTE | 2020-08-28 09:12 | NUR ---
OBTAINED REPORT FROM 2N RN FOR GI PROCEDURE. STATES STILL ON HEPARIN DEVIN. Xochilt TSANG NOTIFIED. TO STOP FOR GI PROCEDURE AT 1300.
--- NOTE | 2020-08-28 09:52 | NUR ---
ASSUME CARE 1900. PT/VITALS STABLE. NO DISTRESS NOTED THROUGH THE NIGHT. MILD COFUSION AND FORGETFULNESS NOTED. A/O TO PERSON, PLACE AND SOMEWHAT SITUATION. COMMUNICATES NEEDS WELL AND FOLLOWS COMMANDS. NO DISTRESS NOTED. SR ON MONITOR WITH HR CONTROLLED. ON HEPARIN DRIP AND TOLERATING WELL. PLAN IS POSSIBILITY OF COLONOSCOPY SOON. STARTED PREP LAST NIGHT WITH 1 LARGE DARK GREEN BM NOTED. WILL CONTINUE TO MONITOR ND FOLLOW WITH POC
[2020-08-28 11:42] VITALS: BP 131/75
--- NOTE | 2020-08-28 12:37 | NUR ---
Plan is for colonscopy today. Spoke with dtr Maddison and she or Loreto will call back with SNF preferences as pt may be dc ready 1-2 days. Berenice notes Loreto has guardianship and she is applying for conservatorship. 124C completed and psych imput noted. Level II not indicated as pt's primary dx is vascular dementia. Will follow.
[2020-08-28 14:08] LABS: CA 19-9 < 2 U/mL (0-35)
--- NOTE | 2020-08-28 15:02 | NUR ---
OT SPOKE WITH TARIQ GUZMAN, PHARMACEUTICAL LABORATORY TECHNICIAN FROM [facility], REGARDING THE GIVMOHR SLING FOR PT. SUBLUXATION IN L UE. TARIQ REPORTS HE IS DELIVERING SLING TODAY, PT. WAS IN COLONOSCOPY AND NURSING REPORTS PT. IS BEING TRANSFERRED TO ICU 239. SPOKE WITH CAROLIN MENESES, FOR 239 AND REQUESTED NEW OT/PT ORDERS WHEN PT. IS MEDICALLY APPROPRIATE AND THERAPY WILL FIT THE SLING TO PT. L UE AND CONTINUE THERAPY SERVICES. PLACING PT. ON HOLD AT THIS TIME.
--- NOTE | 2020-08-28 16:26 | NUR ---
ASSESSMENT CHARTED - MEDS PER MAR - VASOTEC HELD PER ANASTHESIA AND CARDIZEM PER BELT CLEANER. PT NPO FOR COLONOSCOPY THIS AFTERNOON. PT [id number] OF STOOL - STOOL REMAINED DARK AND LIQUID. PT TO GI LAB FOR COLON - ORDERED FOR PATIENT TO GO TO ICU POST PROCEDURE. - ATTEMPTED TO CALL REPORT X 2 TO THE ICU - SAID THEY WILL CALL BACK - HAVE NOT OF YET SWS INFORMED NURSE THAT COUSIN AWARE OF PATIENT BEING TRANSFERED TO THE ICU - PT BELONGINGS TRANSFERED.
--- NOTE | 2020-08-28 16:30 | NUR ---
AT 1530, PT RECEIVED FROM PACU VIA BED. PT TRANSFERRED TO ICU BED, PLACED ON CONTINUOUS CARDIAC AND SPO2 MONITORING W/ FREQUENT VS IN PROGRESS. PT TRANSITIONED TO O2 VIA NC @ 6L/MIN W/O DIFFICULTY. SPO2 96%. SR W/ OCCASIONAL PVC'S NOTED ON MONITOR. PT ORIENTED TO ICU ROOM. PT CONFUSED TO PLACE, TIME AND SITUATION. DAUGHTER, AMI, AT BEDSIDE. ORIENTED FAMILY TO ICU POLICY AND ENCOURAGED AMI TO CALL W/ CODE FOR ANY UPDATES. REASSURANCES AND EMOTIONAL SUPPORT PROVIDED.
--- NOTE | 2020-08-28 19:19 | NUR ---
AT 1700, DAUGHTER, AMI, TOOK PT'S 4 PABLO COLORED METAL RINGS W/ CLEAR STONES HOME WITH HER.
[2020-08-28 21:55] LABS: BE(vivo) -10.3 mmol/L (-2 to +3); HCO3 13.4 mmol/L (22.0-26.0); PO2 79.8 mmHg (80.0-100.0); pH 7.384 (7.360-7.450); sO2 95.9 % (92.0-98.0)
[2020-08-29] VITALS (16 sets, daily range): BP systolic 112–134; BP diastolic 69–82
[2020-08-29 05:10] LABS: RBC 2.88 mil/uL (4.20-5.00)
[2020-08-29 05:12] LABS: HEMATOCRIT 26.5 % (37.0-47.0); HEMOGLOBIN 8.6 gm/dL (12.0-15.0); MCH 29.9 pg (26.0-34.0); MCHC 32.5 g/dL (28.0-37.0); MCV 92.2 fL (80.0-100.0); RDW 15.7 % (10.5-14.5)
[2020-08-29 05:55] LABS: CREATININE 1.6 mg/dL (0.6-1.0); POTASSIUM 4.1 mmol/L (3.5-5.1)
--- NOTE | 2020-08-29 09:13 | NUR ---
Chart review. discussed during am rounds. Cm consulted for post-acute. cm spoke with daughter meredith at bedside, re-education on referral for post-acute that were sent yesterday. Daughter would like to see if [facility] would be able to accept and will talk with sister marcia.
--- NOTE | 2020-08-29 09:15 | NUR ---
VAT SPOKE WITH YEISON COE TO NOTIFY THAT PIV'S ARE VERY LIMITED WITH CLOTS IN BOTH ARM AND THAT CVAD BY IR IS NEEDED
[2020-08-29 09:16] LABS: URINE BLOOD 3+ (Negative); URINE CLARITY CLOUDY; URINE COLOR YELLOW; URINE GLUCOSE-RANDOM* TRACE (Negative); URINE KETONES NEGATIVE (Negative); URINE NITRITE-REFLEX NEGATIVE (Negative); URINE PROTEIN (DIPSTICK) 2+ (Negative); URINE SPECIFIC GRAVITY >= 1.030 (1.005-1.035)
[2020-08-29 09:26] LABS: URINE LEUKOCYTES-REFLEX 2+ (Negative)
[2020-08-29 09:27] LABS: ICTOTEST (BILI CONFIRMATORY) Negative (Negative); URINE BILIRUBIN NEGATIVE (Negative)
[2020-08-29 09:57] LABS: SQUAMOUS 4-10 Moderate /LPF (0-3)
[2020-08-29 09:59] LABS: MUCUS >6 Heavy strn/LPF (None Seen)
[2020-08-29 10:01] LABS: HYALINE CASTS 4-10 Moderate /LPF (None Seen)
[2020-08-29 10:02] LABS: FINE GRANULAR CASTS 0-3 Few /LPF (None Seen)
[2020-08-29 10:03] LABS: COARSE GRANULAR CASTS 0-3 Few /LPF (None Seen)
[2020-08-29 10:05] LABS: URINE RBC >20 Many /HPF (NONE SEEN); URINE WBC-REFLEX >25 Many /HPF (0-5)
[2020-08-29 10:06] LABS: BACTERIA-REFLEX >30 Many /HPF (None Seen)
--- NOTE | 2020-08-29 10:06 | NUR ---
Nutrition: Pt with at least 2 week hx of very poor oral intake. Consider DH placement if pt will allow and start tube feeds if within plan of care. Vital AF at 60 mL/hr. High refeeding syndrome risk
[2020-08-29 10:08] LABS: WBC CLUMPS Few (None Seen)
[2020-08-29 10:09] LABS: CRYSTALS None Seen /LPF (None Seen)
--- NOTE | 2020-08-29 13:15 | NUR ---
PT REFUSED MAJORITY OF CARE TODAY. CT OF ABDOMEN/PELVIS WITH CONTRAST COMPLETED. HEPARIN GTT INFUSING. STAFF WAS UNABLE TO DRAW A APTT. DR THACKER IS AWARE AND WOULD LIKE TO DC HEPARIN GTT AND START ON LOVENOX SQ OR PO ELIQUIS, AWAITING THOSE ORDERS. PT AFEBRILE, OLIGURIC (PROVIDERS AWARE), SMALL TARRY BM, NPO. PT GOES INTO AFIB-RVR ON ONE OCCASION, NO S/S OR INTERVENTIONS NECESSARY, PT CONVERTED SELF BACK TO NSR. PT AND DAUGHTERS/FAMILY HAVE BEEN THOUROUGHLY UPDATED AND EDUCATED ON PT CONDITION AND POC. PT NOT PROGRESSING TOWARDS POC.
--- NOTE | 2020-08-29 19:07 | PATH ---
[facility] [address] [place] [address] PATHOLOGY RPT PROCEDURE Name: LOZANOJAVIER Room #: 239-P ADM IN M.R.#: [id number] Admission: 08/23/20 Date of : 50 Discharge: Report #: [id number] Path Case #: [id number] [facility] Accession Number: [id number] . 01 Material submitted: . sigmoid colon - SIGMOID COLON POLYP 30CM. Modifiers: 30CM . 01 Clinical history: . EGD,COLONOSCOPY ABNORMAL CT LIVER,POSSIBLE METASTATIC DISEASE HIATAL HERNIA,DIVERTICULOSIS,COLON POLYP ACUTE DVT,CELLULITIS,ANEMIA,RECENT STROKE,DEMENTIA . 02 Diagnosis: Polyp, sigmoid colon polyp 30 cm, endoscopic biopsy: - Tubular adenoma. - Negative for high-grade dysplasia. (IUV:fouzia; 08/29/2020) MBR 08/29/2020 1657 Local . 02 Electronically signed: . Bianka Arango MD, Pathologist NPI- [id number] . 01 Gross description: . Received in formalin labeled "Javier Lozano, sigmoid colon polyp 30 cm" are multiple ashley-brown soft tissue fragments measuring in aggregate 0.6 x 0.4 x 0.1 cm. The specimen is submitted entirely in A1. (ISIAH; 08/28/2020) ISIAH/ISIAH 08/28/2020 2233 Local . 02 Pathologist provided ICD-10: D12.3 . 02 CPT . 813366 Specimen Comment: A courtesy copy of this report has been sent to [phone], [phone] Specimen Comment: [id number] Specimen Comment: Report sent to / DR ZAMBRANO Performed at: 01 [facility] [address] [place] [address] [address], [place] [id number] MD Leandro Mendosa MD Phone: [phone] Performed at: [address] [id number] [address] [address] PATHOLOGY RPT PROCEDURE Name: OLGA LOZANOLINE Room #: 239-P ADM IN M.R.#: [id number] Admission: 08/23/20 Date of : 50 Discharge: Report #: [id number] Path Case #: [id number] MD Bianka Arango MD Phone: [phone]
[2020-08-30] VITALS (24 sets, daily range): BP systolic 101–136; BP diastolic 63–87
[2020-08-30 06:28] LABS: RDW 15.8 % (10.5-14.5)
[2020-08-30 06:30] LABS: HEMATOCRIT 25.3 % (37.0-47.0); HEMOGLOBIN 8.5 gm/dL (12.0-15.0); MCH 30.8 pg (26.0-34.0); MCHC 33.5 g/dL (28.0-37.0); MCV 91.8 fL (80.0-100.0); PLATELET COUNT 81 thou/uL (150-400); RBC 2.76 mil/uL (4.20-5.00)
[2020-08-30 06:36] LABS: CALCIUM 8.3 mg/dL (8.5-10.1); CREATININE 2.1 mg/dL (0.6-1.0); POTASSIUM 3.8 mmol/L (3.5-5.1)
[2020-08-30 09:16] LABS: AMYLASE 14 U/L (25-115); LIPASE 62 U/L (73-393)
[2020-08-30 09:31] LABS: WBC 31.1 thou/uL (4.0-11.0)
[2020-08-30 09:32] LABS: ABSOLUTE NEUTROPHILS 19.2 thou/uL (1.4-8.2); CORRECTED WBC 26.6 thou/uL (4.0-11.0); METAMYELOCYTES 2 %; MYELOCYTES 3 %; NUCLEATED RBCS 17 /100WBC
[2020-08-30 09:33] LABS: ANISOCYTOSIS 2+; POLYCHROMASIA OCCASIONAL
--- NOTE | 2020-08-30 09:33 | NUR ---
PATIENT CURRENTLY ON 2L SAT 94%. BIPAP IN PATIENT'S ROOM ON STANDBY.
[2020-08-30 09:35] LABS: LARGE PLATELETS FEW
--- NOTE | 2020-08-30 09:43 | NUR ---
SPOKE W/ JOSELYN BLISS, AT THE REQUEST OF DR. THACKER TO SET UP A FAMILY CONFERENCE TODAY BEFORE 1PM OR ANYTIME TOMORROW. JOSELYN STATED SHE WOULD GET IN TOUCH WITH DAUGHTER, AMI, AND ARRANGE A TIME FOR TOMORROW. AWAIING CALLBACK.
--- NOTE | 2020-08-30 09:50 | NUR ---
SPOKE W/ JOSELYN, PTS DAUGHTER. FAMILY MEETING ARRAGED FOR TOMORROW AT 10AM WITH DR. THACKER. PHYSICIAN CONTACTED VIA [employer] TO NOTIFY HIM OF THIS ARRANGEMENT.
--- NOTE | 2020-08-30 18:24 | NUR ---
PT VISITED W/ FAMILY MEMBERS TODAY. DAUGHTERS UPDATED ON DIAGNOSTIC TEST RESULTS BY DR. EASTMAN AND PLAN TO HAVE FAMILY MEETING TOMORROW AT 10AM W/ DR. THACKER. EMOTIONAL SUPPORT AND REASSURANCES PROVIDED. PT'S URINE OUTPUT REMAINS LOW. VS STABLE AND PT TOLERATING PPN WITHOUT ADVERSE EFFECTS. OVERALL, PT NOT PROGRESSING TOWARD GOALS.
[2020-08-31] VITALS (19 sets, daily range): BP systolic 105–132; BP diastolic 63–81
--- NOTE | 2020-08-31 02:21 | NUR ---
ASSUMED CARE AT 2330, RECEIVED REPORT FROM OFF-GOING RN. MIDNIGHT MEDS GIVEN. AFEBRILE. PPN INFUSING. WILL CONTINUE TO MONITOR.
[2020-08-31 05:25] LABS: HEMOGLOBIN 7.7 gm/dL (12.0-15.0); RDW 16.1 % (10.5-14.5)
[2020-08-31 05:27] LABS: HEMATOCRIT 24.1 % (37.0-47.0); MCH 29.8 pg (26.0-34.0); RBC 2.59 mil/uL (4.20-5.00); WBC 37.3 thou/uL (4.0-11.0)
[2020-08-31 05:48] LABS: CREATININE 1.9 mg/dL (0.6-1.0); POTASSIUM 4.1 mmol/L (3.5-5.1)
--- NOTE | 2020-08-31 10:48 | NUR ---
SW INFORMED THAT PT FAMILY IS AGREEABLE TO TRANSITIONING TO A HOSPICE HOUSE. SW SENT REFERRAL TO HOSPICE TO EVALUATE AND SPOKE W/ TESFAYE [phone] TO PULL PT'S REFERRAL TO ASSESS ON THIS DAY. SW AWAITING CONFIRMATION OF REFERRAL AND TIME FOR ASSESSMENT TO OCCUR
--- NOTE | 2020-08-31 10:53 | NUR ---
PATIENT DROWSY, AROUSABLE AND ABLE TO STATE FIRST NAME AND ANSWERS TO Y/N QNS. VITALS STABLE. PPN FOR NUTRITION. PATIENT'S 2 DAUGHTERS CAME IN AND CONFERENCED WITH DR. THCAKER. AFTER THE MEETING DR. THACKER INFORMED ME THAT PATIENT FAMILY WISHES WERE TO CHANGE CODE STATUS TO "NO CODE" AND TRANSFER TO HOSPICE HOUSE TODAY, HE ALSO STATED THAT THEY WISHED FOR HER TO GET SOME FOOD IF SHE WANTED TO TRY TO EAT SOMETHING. [facility] CONSULTED AND IS WORKING ON GETTING A REP. FROM HOSPICE HOUSE TO COME EVALUATE.
--- NOTE | 2020-08-31 13:06 | NUR ---
JOCELYNE informed by Latisha at hospice [phone] that Aminta [phone] will complete pt assessment at 1400 on this day for potential admission to hospice. SW provided NOD w/ a completed PCS form. JOCELYNE informed NOD that if pt is accepted into hospice house that transportation will have to be set by nursing w/ [employer] and receive trip number. After trip number is retrieved, fax PCS form to [phone] and call [phone] after 10-15 mins. Outside DNR form placed on chart. JOCELYNE advised medical team.
--- NOTE | 2020-08-31 14:35 | NUR ---
HOSPICE REP CAME IN TO EVAL PATIENT, STATED PATIENT DOESN'T QUALIFY FOR HOSPICE HOUSE BUT QUALIFIES FOR HOME WITH HOSPICE CARE AND STATED SHE WOULD COMMUNICATE THIS WITH PATIENT'S DAUGHTERS AND THE [employer] SPLICER.
--- NOTE | 2020-08-31 15:07 | NUR ---
RECEIVED CALL FROM DR. THACKER AND UPDATED ON HOSPICE HOUSE EVAL, TRANSFER ORDERS RECEIVED.
--- NOTE | 2020-08-31 15:08 | NUR ---
RECEIVED CALL FROM CHLOE'S DAUGHTER AMI SOUNDING UPSET REGARDING A CALL FROM HOSPICE NURSE AND WANTED TO TALK TO SW, I INFORMED THEM SHE HAD LEFT FOR THE DAY. SHE WANTED TO KNOW WHAT OTHER OPTIONS THEY HAD SINCE PATIENT DIDN'T QUALIFY FOR HOSPICE HOUSE. I INFORMED THEM I WILL PUT ANOTHER CONSULT ORDER FOR THEM TO FOLLOW UP TOMORROW TO PROVIDE MORE INFO.
--- NOTE | 2020-08-31 17:48 | NUR ---
REPORT CALLED TO CAROLIN OROZCO AND PATIENT WILL BE MOVING TO RM 362. DAUGHTER AMI NOTIFIED OF NEW ROOM NUMBER VIA TELEPHONE.
--- NOTE | 2020-08-31 19:24 | NUR ---
1830 pt transferred from icu to 362, alert to self and lethargic. on 3l of oxygen, tachypneic and restless. morphine given per order. vital signs and tele placed. oral care completed. report given to mathew bojorquez.
[2020-09-01] VITALS (8 sets, daily range): BP systolic 101–143; BP diastolic 62–92
[2020-09-01 06:02] LABS: HEMATOCRIT 24.6 % (37.0-47.0); MCH 30.5 pg (26.0-34.0); MCHC 32.5 g/dL (28.0-37.0); MCV 93.8 fL (80.0-100.0); RBC 2.63 mil/uL (4.20-5.00); RDW 16.6 % (10.5-14.5)
[2020-09-01 06:04] LABS: WBC 40.6 thou/uL (4.0-11.0)
[2020-09-01 06:06] LABS: CALCIUM 8.3 mg/dL (8.5-10.1); CREATININE 1.8 mg/dL (0.6-1.0); POTASSIUM 4.4 mmol/L (3.5-5.1)
--- NOTE | 2020-09-01 06:36 | NUR ---
PATIENT IS A/O TO PERSON. CONFUSED ON TIME AND PLACE. LETHARGIC. AFEBRILE. VSS. DENIES NEED. ARGUETA IN PLACE WITH GOOD U/O. PPN GTT. TOLERATING IT WELL. FAMILY AT THE BEDSIDE. WILL KEEP MONITORING.
--- NOTE | 2020-09-01 08:01 | NUR ---
NOTE PLANS TO MOVE TOWARDS HOSPICE. WILL SIGN OFF AT THIS TIME
--- NOTE | 2020-09-01 08:31 | NUR ---
Pt moving toward hospice. OT will sign off at this time.
--- NOTE | 2020-09-01 12:52 | NUR ---
CARE ASSUMED THIS, PT CONTINUE TO BE LETHERGIC, FOLLOW SOME COMMANDS. CONTINUE TO BE ON 3L OF O2. REPOSITION AND ORAL CARE DONE EVERY 2 HOURS. PT DAUGHTER VISITING, UPDATED ON PT CARE AND WAITING ON SW ABOUT HOSPICE PLACEMENT. FALL PRECAUTIONS IN PLACE. WILL CONTINUE TO MONITOR.
--- NOTE | 2020-09-01 21:22 | NUR ---
PT LETHARGIC. OPENS EYES SPONTANEOUSLY. ANSWERS WITH SOFT QUIET VOICE SOMETIMES TO SOME QUESTIONS BUT IS CONFUSED. ORALCARE DONE. DENIED PAIN. REPOSIIONING PT FOR COMFORT. PRESENTLY UNLABORED ON 3LNC.
--- NOTE | 2020-09-02 00:44 | NUR ---
PT APPEARED TO BE IN PAIN. SHE WAS MOANING AND FROWNING. FACE 6. SOA NOTED. MEDICATED WITH MORPHINE 2 MG . PT REPOSITIONED. SHE IS NOW SLEEPING. WILL CONTINUE TO MONITOR FOR S/S PAIN.
[2020-09-02 04:07] VITALS: BP 136/74
[2020-09-02 04:36] VITALS: BP 149/75
[2020-09-02 04:46] VITALS: BP 129/69
--- NOTE | 2020-09-02 06:33 | NUR ---
PT OT PROGRESSING. SHE IS ON PALLIATIVE CARE. MEDICATED FOR S/S PAIN SEVERAL TIMES TONIGHT. PT SLEPT INBETWEEN. ORAL AND PERICARE DONE. PT REMAINS ON 3LNC. VSS PRESENTLY.
[2020-09-02 07:20] VITALS: BP 143/78
--- NOTE | 2020-09-02 11:17 | NUR ---
PT CONTINUES TO BE LETHARGIC, SOMETIMES RESTLESS AND TACHYPNEIC WHEN IN PAIN. REPOSITION AND ORAL CARE DONE EVERY [address]CAUTIONS IN PL[address] WAITING ON SW PLAN ABOUT HOSPICE PLACEMENT.
--- NOTE | 2020-09-02 13:45 | NUR ---
JOCELYNE reviewed chart and spoke with nursing and attending physician. Pt was transferred to from ICU over the weekend. Received consult for [facility] to evaluate pt. Pt was not accepted to the [facility]. Pt is on 2L of O2 and on IV abx and IV pain meds. JOCELYNE spoke with pt's dtr, Christian, via phone to provide update and discuss alternate hospice house locations. Pt's dtr states that family does not want pt to be re-evaluated by the [facility], as they had a negative experience with the hydrogen plant operator over the weekend. Pt's dtr is agreeable with referral to [facility]. JOCELYNE faxed referral and spoke with Erasto in intake. Hospice team to review info and contact JOCELYNE or pt's nurse for additional info. Awaiting for input for [facility] at this time. JOCELYNE is following to assist as needed with discharge planning.
[2020-09-02 15:25] VITALS: BP 136/82
[2020-09-02 20:20] VITALS: BP 141/85
[2020-09-03 04:06] VITALS: BP 137/91
--- NOTE | 2020-09-03 05:48 | NUR ---
FOLLOWING POC WITH PAIN MANAGEMENT AND [address] REDRESSED IV SITE. HOURLY ROUNDING.
[2020-09-03 07:36] VITALS: BP 147/94
--- NOTE | 2020-09-03 09:36 | NUR ---
SW received call from pt's nurse stating that [facility] called and they do have a room for pt today. SW left voice message for pt's dtr, Loreto, to provide update. JOCELYNE notified attending physician as well. Awaiting final discharge ppwk at this time. JOCELYNE is following to assist as needed with discharge planning.
[2020-09-03] MEDS ORDERED: MORPHINE SU4 MG/1 M1 IV PUSH (11:57)
--- NOTE | 2020-09-05 08:28 | P ---
[facility] [place] [address] PROCEDURE REPORT Name: JAVIER MAURICIO Room #: 362-P [facility] IN M.R.#: [id number] Admission: 08/23/20 Attend Phys: Wendy Astudillo MD Discharge: 09/03/20 Date of : 50 Report #: [id number] THIS REPORT FOR: cc: SAW - No family physician/PCP FAM - No family physician/PCP Rodriguez Fitzpatrick MD ~ DOC #: [id number] cc: Matty Baptiste MD, MD Rodriguez Mota MD DATE OF SERVICE: 08/28/2020 PROCEDURE PERFORMED: Colonoscopy with biopsies. HISTORY OF PRESENT ILLNESS: The patient is a 70-year-old female with multiple medical problems who underwent a CT scan of her chest and thorax with arteriogram on 08/23/2020 that showed no evidence of pulmonary embolus; however, there was evidence of multiple small liver metastases. This is a new finding. No previous history of colonoscopy. Upper endoscopy was just performed by myself. She did undergo a venous Doppler ultrasound bilaterally of her upper extremities on 08/25/2020 showing bilateral DVTs. The patient has been on IV heparin drip. This was held this morning at approximately 9:30, upper endoscopy was just performed. Plan is for colonoscopy. Of note, the patient is confused and did not cooperate well with her overall prep. DESCRIPTION OF PROCEDURE: The risks and benefits of the procedure were explained to the patient's daughter, those risks including, but not limited to bleeding, perforation and the risk of sedation. She understood these risks and gave informed consent. Sedation was given using propofol per anesthesia. Next, a digital rectal exam showed a large amount of stool within the rectal vault. I manually disimpacted the stool. Because the patient is confused and it is very difficult to prep, I did decide to proceed at least with an attempted colonoscopy to see if it could be performed. Next, using a standard Olympus colonoscope, the scope was placed in the patient's anus and I was able to advance the scope, even though the prep was poor in many areas. I was able to advance the scope into the cecum. The visualized portions of the cecum and ileocecal valve were normal in appearance. There were a few diverticula in the ascending colon. Again, the prep was poor in areas, which did limit visualization, but most areas were fairly well seen. The visualized portions of the transverse and descending colon were normal. A large polyp was noted in the sigmoid colon at 30 cm. Because of her recent heparin and likely need to be on heparin again, I did not want to remove this by snare cautery due to risk of bleeding. Therefore, several biopsies were obtained. It did not appear to be a mass-like malignancy. It appeared to be more consistent with a large polyp. It was soft. Several biopsies obtained. The size was approximately 2 cm in size. There was no evidence of bleeding. Diverticulosis was also noted in the sigmoid [address] [address] PROCEDURE REPORT Name: HANGJAVIER Room #: 362-P [facility] IN M.R.#: [id number] Admission: 08/23/20 Attend Phys: Wendy Astudillo MD Discharge: 09/03/20 Date of : 50 Report #: [id number] colon. The rectal mucosa again was somewhat limited. Visualization was normal. The scope was then withdrawn and the procedure terminated. During the procedure, the patient had been coughing. Oral suction was applied. Sun frothy material was suctioned from her mouth. A little bit of bright red blood was also suctioned from her mouth ____. After the procedure, she was having increased cough and wheezing. IMPRESSION: 1. Large polyp in the sigmoid colon, doubt malignancy based on appearance. Again, not able to remove today due to likely need for heparin again in the near future and anticoagulation therapy, but biopsies were obtained. 2. Diverticulosis. 3. Prep was poor in many areas, but I was able to visualize many areas fairly well as described above. RECOMMENDATIONS: 1. Await biopsy results. 2. We will discuss further with Dr. Serrato and family, the patient obviously was having a fair amount of coughing and some wheezing after the procedure. We will obtain a chest x-ray, start BiPAP. Plan is to transfer the patient to the ICU at this time, would likely recommend a CT scan of her abdomen and pelvis in the near future as well when things improve. Thank you for allowing me to participate in her care. Rodriguez Fitzpatrick MD CCM/JORDAN/DIPAK <ELECTRONICALLY SIGNED> By: Rodriguez Fitzpatrick MD 09/05/20 0828 1348 05 Rodriguez Fitzpatrick MD /nt
--- NOTE | 2020-09-05 08:28 | P ---
[facility] [place] [address] PROCEDURE REPORT Name: JAVIER MAURICIO Room #: 362-P [facility] IN M.R.#: [id number] Admission: 08/23/20 Attend Phys: Wendy Astudillo MD Discharge: 09/03/20 Date of : 50 Report #: [id number] THIS REPORT FOR: cc: SAW - No family physician/PCP FAM - No family physician/PCP Rodriguez Fitzpatrick MD ~ DOC #: [id number] cc: Ryan Serrato MD, MD Rodriguez Hernández MD DATE OF SERVICE: 08/28/2020 PROCEDURE PERFORMED: Upper endoscopy. HISTORY OF PRESENT ILLNESS: The patient is a 70-year-old female with multiple medical problems including a recent diagnosis of bilateral DVTs. A CT scan of the chest and thorax with arteriogram was performed on 08/23/2020, that showed no evidence of pulmonary embolus or other acute pulmonary process, mild cardiomegaly was noted. Moderate size hiatal hernia noted. Multiple small liver metastases were seen. The patient has not had a colonoscopy before. She is confused. Her family would like to proceed with further workup. Plan is for EGD and colonoscopy today. DESCRIPTION OF PROCEDURE: The risks and benefits of the procedure were explained to the patient's daughter. Those risks including, but not limited to bleeding, perforation and the risk of sedation. She understood these risks and gave informed consent. Sedation was given using propofol per anesthesia. Next, using a standard Olympus upper endoscope, the scope was placed in the patient's mouth and advanced under direct vision through the esophagus, stomach and into the second portion of the duodenum. The larynx was normal in appearance. The esophagus was normal throughout. The GE junction was normal. Upon entering the stomach, a medium size hiatal hernia was noted. Overall, the gastric mucosa was normal. The pylorus was normal and patent. The duodenal bulb, first and second portion were all normal. The scope was then withdrawn and the procedure terminated. The patient tolerated the procedure well. IMPRESSION: 1. Medium size hiatal hernia. 2. Otherwise, normal upper endoscopy. RECOMMENDATIONS: We will proceed with colonoscopy next today. Thank you for allowing me to participate in her care. Rodriguez Fitzpatrick MD [facility]/[address] [address] PROCEDURE REPORT Name: JAVIER MAURICIO Room #: 362-P [facility] IN M.R.#: [id number] Admission: 08/23/20 Attend Phys: Wendy Astudillo MD Discharge: 09/03/20 Date of : 50 Report #: [id number] <ELECTRONICALLY SIGNED> By: Rodriguez Fitzpatrick MD 09/05/20 0828 1342 43 Rodriguez Fitzpatrick, /rehana
== END 2020-09-03 13:15 | disposition hospice, home (50) | DRG 871 ==
LOC: 2N 11:01 → 3W 11:30 → 2N 11:57 → ICU 08-28 15:10 → 3W 08-31 18:12
PROVIDERS: Hospitalist; Internal Medicine Cardiovascular Disease; Internal Medicine Hematology & Oncology; Nurse Practitioner; Nurse Practitioner Family; Pediatrics; ADMIT Internal Medicine; ATTEND Internal Medicine
DX: A41.9 Sepsis, unspecified organism (principal); J96.01 Acute respiratory failure with hypoxia; I63.10 Cerebral infarction due to embolism of unspecified precerebral artery; I82.622 Acute embolism and thrombosis of deep veins of left upper extremity; E44.0 Moderate protein-calorie malnutrition; I69.354 Hemiplegia and hemiparesis following cerebral infarction affecting left non-dominant side; N39.0 Urinary tract infection, site not specified; I82.611 Acute embolism and thrombosis of superficial veins of right upper extremity; N17.9 Acute kidney failure, unspecified; R00.0 Tachycardia, unspecified; R77.8 Other specified abnormalities of plasma proteins; I45.81 Long QT syndrome; K44.9 Diaphragmatic hernia without obstruction or gangrene; K63.5 Polyp of colon; I10 Essential (primary) hypertension; E78.5 Hyperlipidemia, unspecified; E11.9 Type 2 diabetes mellitus without complications; D64.9 Anemia, unspecified; F32.9 Major depressive disorder, single episode, unspecified; D69.6 Thrombocytopenia, unspecified; F03.90 Unspecified dementia, unspecified severity, without behavioral disturbance, psychotic disturbance, mood disturbance, and anxiety; R16.0 Hepatomegaly, not elsewhere classified; N63.0 Unspecified lump in unspecified breast; F29 Unspecified psychosis not due to a substance or known physiological condition; R13.10 Dysphagia, unspecified; F01.50 Vascular dementia, unspecified severity, without behavioral disturbance, psychotic disturbance, mood disturbance, and anxiety; Z66 Do not resuscitate; K57.30 Diverticulosis of large intestine without perforation or abscess without bleeding; Z51.5 Encounter for palliative care; I25.2 Old myocardial infarction; Z68.33 Body mass index [BMI] 33.0-33.9, adult
CPT/HCPCS: 10078; 10081; 10779; 10879; 50455; 62110; 62900; 70005